=== PATIENT | female | born 1960 | race American Indian/Alaskan Native ===

== ENCOUNTER 2019-02-23 07:53 | Emergency (ER) | payer OTHER ==
[2019-02-23] MEDS ORDERED: fentaNYL 100 MCG/2 ML INJ IV ONE (09:03)
[2019-02-23] MEDS ORDERED: ONDANSETRON 4 MG/2 ML INJ IV ONE (09:03)
--- NOTE | 2019-02-23 09:07 | Emergency Department Report ---
HPI - General Chief Complaint: Fall Time Seen by Provider: 02/23/19 08:47 - HPI HPI: Room 36 The patient is a 58-year-old female presenting with a chief complaint of pain after fall. Patient states this morning she slipped and fell landing she believes on the right side. Patient states she does not know if she lost consciousness but a coworker who is present states that the patient was not responding immediately after the fall. Patient complains of pain in her left knee and left hip the left upper extremity. Patient gives her pain a score of 6/10. Location: [See above] Duration: [See above] Quality: [See above] Severity: [See above] Timing: [See above] Context: [See above] Modifying factors: [See above] Associated signs and symptoms: [see above] ED Past Medical Hx - Past Medical History Previous Medical History?: Yes Hx Hypertension: Yes - Surgical History Additional Surgical History: Ectopic 2, thyroid goiter removal - Family History Family history: no significant - Social History Smoking Status: Never Smoker Substance Use Type: Alcohol (occasional) - Medications Home Medications: Home Medications Medication Instructions Recorded Confirmed Last Taken Type Cyclobenzaprine [Flexeril] 10 mg PO TID PRN #10 tablet 02/23/19 Unknown Rx HYDROcodone/APAP 5-325 [[facility] 1 - 2 each PO Q6HR PRN #10 tablet 02/23/19 Unknown Rx 5/325] Ibuprofen [Motrin 800 MG tab] 800 mg PO Q8HR PRN #20 tablet 02/23/19 Unknown Rx ED Review of Systems ROS: Stated complaint: LEFT KNEE INJURY/FALL Other details as noted in HPI Constitutional: no symptoms reported Musculoskeletal: arthralgia, myalgia Neurological: denies: headache Physical Exam - Physical Exam Physical Exam: GENERAL: The patient is well-developed well-nourished female sitting on stretcher not appearing to be in acute distress. [] HEENT: Normocephalic. Atraumatic. Extraocular motions are intact. Patient has moist mucous membranes. NECK: Supple. No axial tenderness to palpation. No axial step off CHEST/LUNGS: Clear to auscultation. There is no respiratory distress noted. HEART/CARDIOVASCULAR: Regular. There is no tachycardia. There is no gallop rub or murmur. ABDOMEN: Abdomen is soft, nontender. Patient has normal bowel sounds. There is no abdominal distention. SKIN: There is no rash. There is no edema. There is no diaphoresis. NEURO: The patient is awake, alert, and oriented. The patient is cooperative. The patient has no focal neurologic deficits. The patient has normal speech. Cranial nerves II through XII grossly intact, no drift MUSCULOSKELETAL: There is tenderness to palpation of the right elbow,, right humerus, left humerus, left wrist, left hip and left knee. There is no axial spine tenderness to palpation. There is no evidence of acute injury. ED Medical Decision Making - Radiology Data Radiology results: report reviewed (CT head, right knee x-ray, bilateral humerus x-ray, left hip x-ray), image reviewed (CT head, left wrist x-ray, left knee x- ray, bilateral humerus x-ray, left hip x-ray) interpreted by me: Left wrist x-ray-no acute fracture Left knee x-ray-no acute fracture Bilateral humerus x-ray-no acute fracture With hip x-ray-no acute fracture [facility] [address] [place] [address] Cat Scan Report Signed Patient: NIA SUAREZ MR#: [id number] : 1960 Acct:[id number] Age/Sex: 58 / F ADM Date: 02/23/19 Loc: ED Attending Dr: Ordering Physician: FIGUEROA SERRANO MD Date of Service: 02/23/19 Procedure(s): CT head/brain wo con Accession Number(s): [id number] cc: FIGUEROA SERRANO MD CT HEAD WITHOUT CONTRAST INDICATION / CLINICAL INFORMATION: fall, brief loss of consciousness. TECHNIQUE: Axial imaging performed from the skull apex through the skull base without the use of contrast. Sagittal and coronal reformatted images. All CT scans at this location are performed using CT dose reduction for ALARA by means of automated exposure control. COMPARISON: None available. FINDINGS: CEREBRAL PARENCHYMA: No significant abnormality. No acute territorial infarct. HEMORRHAGE: None. EXTRA-AXIAL SPACES: Normal in size and morphology for the patient's age. VENTRICULAR SYSTEM: Normal in size and morphology for the patient's age. MIDLINE SHIFT OR HERNIATION: None. CEREBELLUM / BRAINSTEM: No significant abnormality. CALVARIUM: No significant abnormality. ORBITS: Normal as visualized. PARANASAL SINUSES / MASTOID AIR CELLS: Normal as visualized. SOFT TISSUES of HEAD: No significant abnormality. ADDITIONAL FINDINGS: None. IMPRESSION: No acute intracranial abnormality. Unremarkable CT brain. Signer Name: Augustin Maldonado Jr, MD Signed: 02/23/2019 9:48 AM Workstation Name: [id number] Transcribed By: TTR Dictated By: AUGUSTIN MALDONADO JR, MD Electronically Authenticated By: AUGUSTIN MALDONADO JR, MD Signed Date/Time: 02/23/19 0948 DD/ 0947 TD/TT: [address] [address] XRay Report Signed Patient: NIA SUAREZ MR#: [id number] : 1960 Acct:[id number] Age/Sex: 58 / F ADM Date: 02/23/19 Loc: ED Attending Dr: Ordering Physician: FIGUEROA SERRANO MD Date of Service: 02/23/19 Procedure(s): XR hip 2-3V LT Accession Number(s): [id number] cc: FIGUEROA SERRANO MD Fluoro Time In Minutes: BILATERAL HUMERUS 2 VIEWS INDICATION: pain after slip and fall. COMPARISON: None. IMPRESSION: No acute osseous or soft tissue abnormality. No significant DJD. RIGHT ELBOW 3 VIEWS INDICATION: pain after slip and fall. COMPARISON: None. IMPRESSION: No acute osseous or soft tissue abnormality. Minimal osteoarthritic changes are identified. LEFT HIP 2 VIEWS INDICATION: pain after slip and fall. COMPARISON: None. IMPRESSION: No acute osseous or soft tissue abnormality. Minimal osteoarthritic changes are identified. LEFT KNEE 3 VIEWS INDICATION: pain after slip and fall. COMPARISON: None. IMPRESSION: No acute osseous or soft tissue abnormality. Mild osteoarthritic changes are identified in the medial compartment and patellofemoral space. Signer Name: Augustin Maldonado Jr, MD Signed: 02/23/2019 10:19 AM Workstation Name: [id number] Transcribed By: TTR Dictated By: AUGUSTIN MALDONADO JR, MD Electronically Authenticated By: AUGUSTIN MALDONADO JR, MD Signed Date/Time: 02/23/19 1019 DD/ 1016 TD/TT: [address] [address] XRay Report Signed Patient: NIA SUAREZ MR#: [id number] : 1960 Acct:[id number] Age/Sex: 58 / F ADM Date: 02/23/19 Loc: ED Attending Dr: Ordering Physician: FIGUEROA SERRANO MD Date of Service: 02/23/19 Procedure(s): XR humerus BILAT 2+V Accession Number(s): [id number] cc: FIGUEROA SERRANO MD Fluoro Time In Minutes: BILATERAL HUMERUS 2 VIEWS INDICATION: pain after slip and fall. COMPARISON: None. IMPRESSION: No acute osseous or soft tissue abnormality. No significant DJD. RIGHT ELBOW 3 VIEWS INDICATION: pain after slip and fall. COMPARISON: None. IMPRESSION: No acute osseous or soft tissue abnormality. Minimal osteoarthritic changes are identified. LEFT HIP 2 VIEWS INDICATION: pain after slip and fall. COMPARISON: None. IMPRESSION: No acute osseous or soft tissue abnormality. Minimal osteoarthritic changes are identified. LEFT KNEE 3 VIEWS INDICATION: pain after slip and fall. COMPARISON: None. IMPRESSION: No acute osseous or soft tissue abnormality. Mild osteoarthritic changes are identified in the medial compartment and patellofemoral space. Signer Name: Augustin Maldonado Jr, MD Signed: 02/23/2019 10:19 AM Workstation Name: [id number] Transcribed By: TTR Dictated By: AUGUSTIN MALDONADO JR, MD Electronically Authenticated By: AUGUSTIN MALDONADO JR, MD Signed Date/Time: 02/23/19 1019 DD/ 1016 TD/TT: [address] [address] XRay Report Signed Patient: NIA SUAREZ MR#: [id number] : 1960 Acct:[id number] Age/Sex: 58 / F ADM Date: 02/23/19 Loc: ED Attending Dr: Ordering Physician: FIGUEROA SERRANO MD Date of Service: 02/23/19 Procedure(s): XR hip 2-3V LT Accession Number(s): [id number] cc: FIGUEROA SERRANO MD Fluoro Time In Minutes: BILATERAL HUMERUS 2 VIEWS INDICATION: pain after slip and fall. COMPARISON: None. IMPRESSION: No acute osseous or soft tissue abnormality. No significant DJD. RIGHT ELBOW 3 VIEWS INDICATION: pain after slip and fall. COMPARISON: None. IMPRESSION: No acute osseous or soft tissue abnormality. Minimal osteoarthritic changes are identified. LEFT HIP 2 VIEWS INDICATION: pain after slip and fall. COMPARISON: None. IMPRESSION: No acute osseous or soft tissue abnormality. Minimal osteoarthritic changes are identified. LEFT KNEE 3 VIEWS INDICATION: pain after slip and fall. COMPARISON: None. IMPRESSION: No acute osseous or soft tissue abnormality. Mild osteoarthritic changes are identified in the medial compartment and patellofemoral space. Signer Name: Augustin Maldonado Jr, MD Signed: 02/23/2019 10:19 AM Workstation Name: [id number] Transcribed By: TTR Dictated By: AUGUSTIN MALDONADO JR, MD Electronically Authenticated By: AUGUSTIN MALDONADO JR, MD Signed Date/Time: 02/23/19 1019 DD/ 1016 TD/TT: - Differential Diagnosis closed head injury, intracranial hemorrhage, left arm contusion, left leg c Critical care attestation.: If time is entered above; I have spent that time in minutes in the direct care of this critically ill patient, excluding procedure time. ED Disposition Clinical Impression: Closed head injury, Left knee sprain, Contusion of left hip, Contusion of right arm, Contusion of left arm Disposition: DC-01 TO HOME OR SELFCARE Is pt being admited?: No Does the pt Need Aspirin: No Condition: Stable Additional Instructions: Return to the emergency department should you develop worsening symptoms, inability to tolerate food or liquids, high fever or any other concerns Prescriptions: Cyclobenzaprine [Flexeril] 10 mg PO TID PRN #10 tablet PRN Reason: Muscle Spasm Ibuprofen [Motrin 800 MG tab] 800 mg PO Q8HR PRN #20 tablet PRN Reason: Pain, Moderate (4-6) HYDROcodone/APAP 5-325 [[facility] 5/325] 1 - 2 each PO Q6HR PRN #10 tablet PRN Reason: Pain Referrals: PRIMARY MD RAVIN [Primary Care Provider] - 3-5 Days DANITA RIVAS MD [Staff Physician] - 3-5 Days (Dr. Rivas is an orthopedic surgeon. Please follow-up with him for further evaluation) Time of Disposition: 11:23
--- NOTE | 2019-02-23 09:52 | Cat Scan Report ---
CT HEAD WITHOUT CONTRAST INDICATION / CLINICAL INFORMATION: fall, brief loss of consciousness. TECHNIQUE: Axial imaging performed from the skull apex through the skull base without the use of cont rast. Sagittal and coronal reformatted images. All CT scans at this location are performed using CT dose reduction for ALARA by means of automated exposure control. COMPARISON: None available. FINDINGS: CEREBRAL PARENCHYMA: No significant abnormality. No acute territorial infarct. HEMORRHAGE: None. EXTRA-AXIAL SPACES: Normal in size and morphology for the patient's age. VENTRICULAR SYSTEM: Normal in size and morphology for the patient's age. MIDLINE SHIFT OR HERNIATION: None. CEREBELLUM / BRAINSTEM: No significant abnormality. CALVARIUM: No significant abnormality. ORBITS: Normal as visualized. PARANASAL SINUSES / MASTOID AIR CELLS: Normal as visualized. SOFT TISSUES of HEAD: No significant abnormality. ADDITIONAL FINDINGS: None. IMPRESSION: No acute intracranial abnormality. Unremarkable CT brain. Signer Name: Augustin Maldonado Jr, MD Signed: 02/23/2019 9:48 AM Workstation Name: [id number]
--- NOTE | 2019-02-23 10:23 | XRay Report ---
BILATERAL HUMERUS 2 VIEWS INDICATION: pain after slip and fall. COMPARISON: None. IMPRESSION: No acute osseous or soft tissue abnormality. No significant DJD. RIGHT ELBOW 3 VIEWS INDICATION: pain after slip and fall. COMPARISON: None. IMPRESSION: No acute osseous or soft tissue abnormality. Minimal osteoarthritic changes are ident ified. LEFT HIP 2 VIEWS INDICATION: pain after slip and fall. COMPARISON: None. IMPRESSION: No acute osseous or soft tissue abnormality. Minimal osteoarthritic changes are ident ified. LEFT KNEE 3 VIEWS INDICATION: pain after slip and fall. COMPARISON: None. IMPRESSION: No acute osseous or soft tissue abnormality. Mild osteoarthritic changes are identifi ed in the medial compartment and patellofemoral space. Signer Name: Augustin Maldonado Jr, MD Signed: 02/23/2019 10:19 AM Workstation Name: [id number]
--- NOTE | 2019-02-23 11:51 | XRay Report ---
LEFT WRIST HISTORY: pain after slip and fall COMPARISON: None. TECHNIQUE: 3 views of the left wrist obtained. FINDINGS: Bones: No fracture or dislocation. Mild osteopenia. Mild degenerative cysts in the scaphoid. Joint spaces: Maintained. Mild osteoarthritis at the basal joint of the thumb. Soft tissues: No significant abnormality. Additional findings: None. IMPRESSION: 1. Mild osteoarthritis. 2. No apparent traumatic injury. Signer Name: Candido No MD Signed: 02/23/2019 11:47 AM Workstation Name: [id number]
== END 2019-02-23 11:50 | disposition home or self-care (01) ==
LOC: ED 07:53
DX: S83.8X2A Sprain of other specified parts of left knee, initial encounter (principal); S40.022A Contusion of left upper arm, initial encounter; S40.021A Contusion of right upper arm, initial encounter; S70.02XA Contusion of left hip, initial encounter; S09.90XA Unspecified injury of head, initial encounter; I10 Essential (primary) hypertension; Z88.0 Allergy status to penicillin; Z88.2 Allergy status to sulfonamides; Z88.1 Allergy status to other antibiotic agents; X58.XXXA Exposure to other specified factors, initial encounter; Y93.89 Activity, other specified; Y92.89 Other specified places as the place of occurrence of the external cause; Y99.8 Other external cause status
CPT/HCPCS: 70450; 73060; 73080; 73110; 73502; 73562; 96374; 96375; 99284; J2405; J3010